=== PATIENT | female | born 1955 | race Two or more races ===

== ENCOUNTER → 2017-10-02 | Outpatient (CLI) | payer MEDICARE, OTHER ==
[2017-10-02 18:44] LABS: ABSOLUTE BASOPHILS # (AUTO) 0.1 10^3/uL (0.0-0.2); ABSOLUTE EOSINOPHILS # (AUTO) 0.2 10^3/uL (0.0-0.6); ABSOLUTE LYMPHOCYTES (AUTO) 1.5 10^3/uL (0.5-4.7); ABSOLUTE NEUT (AUTO) 5.4 10^3/uL (1.7-8.2); BASOPHILS % (AUTO) 0.8 % (0-2); EOSINOPHILS % (AUTO) 2.6 % (0-6); HEMATOCRIT 43.2 % (36.0-47.0); HEMOGLOBIN 15.1 g/dL (12.0-15.5); MEAN CORPUSCULAR HEMOGLOBIN 34.1 pg (27.0-33.4); MEAN CORPUSCULAR VOLUME 97 fl (80-97); MONOCYTES % (AUTO) 12.4 % (3-13); RED BLOOD COUNT 4.44 10^6/uL (3.72-5.28); RED CELL DISTRIBUTION WIDTH 13.7 % (11.5-14.0); SEGMENTED NEUTROPHILS % (AUTO) 66.2 % (42-78); TOTAL CELLS COUNTED % (AUTO) 100 %; WHITE BLOOD COUNT 8.1 10^3/uL (4.0-10.5)
[2017-10-02 18:51] LABS: ALANINE AMINOTRANSFERASE 104 U/L (9-52); ALBUMIN 4.1 g/dL (3.5-5.0); ALKALINE PHOSPHATASE 124 U/L (38-126); ANION GAP 8 (5-19); ASPARTATE AMINO TRANSFERASE 121 U/L (14-36); BILIRUBIN,DIRECT 0.4 mg/dL (0.0-0.4); BILIRUBIN,TOTAL 0.9 mg/dL (0.2-1.3); BLOOD UREA NITROGEN 19 mg/dL (7-20); CALCIUM 9.5 mg/dL (8.4-10.2); CARBON DIOXIDE 33 mmol/L (22-30); CHLORIDE 99 mmol/L (98-107); GLUCOSE 101 mg/dL (75-110); SODIUM 140.2 mmol/L (137-145); TOTAL PROTEIN 7.4 g/dL (6.3-8.2); URIC ACID 4.1 mg/dL (2.5-7.5)
[2017-10-02 19:13] LABS: PLATELET COUNT 72 10^3/uL (150-450)
[2017-10-04 06:39] LABS: HEPATITIS A AB IGM Negative (Negative); HEPATITIS B CORE AB IGM Negative (Negative); HEPATITS B SURFACE ANTIGEN Negative (Negative)
[2017-10-04 11:33] LABS: APPEARANCE,URINE CLEAR; BILIRUBIN,URINE NEGATIVE (NEGATIVE); COLOR,URINE YELLOW; GLUCOSE, URINE NEGATIVE (NEGATIVE); KETONES,URINE NEGATIVE (NEGATIVE); LEUKOCYTE ESTERASE,URINE LARGE (NEGATIVE); NITRITE,URINE NEGATIVE (NEGATIVE); PROTEIN,URINE NEGATIVE (NEGATIVE); URINE SPECIFIC GRAVITY 1.004; UROBILINOGEN,URINE NEGATIVE mg/dL (<2.0)
[2017-10-04 11:36] LABS: CHOLESTEROL 122.53 mg/dL (0-200); TRIGLYCERIDES 102 mg/dL (<150)
[2017-10-04 11:47] LABS: DIRECT LDL 35 mg/dL (<100)
[2017-10-05 07:28] LABS: HEPATITIS C VIRUS ANTIBODY >11.0 s/co ratio (0.0-0.9)
[2017-10-07 15:39] LABS: HEPATITIS C QUANTITATION 132000 IU/mL (.)
[2017-10-08 07:20] LABS: HEPATITIS C LOG10 5.121 (.)
== END ==
LOC: OD 17:38
PROVIDERS: ATTEND Internal Medicine
DX: B18.2 Chronic viral hepatitis C (principal)
CPT/HCPCS: 36415; 80053; 80061; 80074; 81001; 84550; 85025; 87522

== ENCOUNTER 2018-10-28 21:04 | Inpatient (IN) | payer MEDICARE, OTHER ==
--- NOTE | 2018-10-28 23:33 | ER Document Report ---
ED Medical Screen (RME) - General Chief Complaint: Rectal Bleeding Stated Complaint: INTERNAL BLEEDING Time Seen by Provider: 10/28/18 23:26 Primary Care Provider: LIZZIE JARAMILLO MD [Primary Care Provider] - Follow up as needed TRAVEL OUTSIDE OF THE [place] IN LAST 30 DAYS: No - HPI Notes: 10/28/18 23:27 Patient is a 63-year-old female presents to the emergency department with chief complaint of rectal bleeding. Patient states she has a history of systemic scleroderma and similar rectal bleeding in the past. Patient states that last time she had the symptoms was 3 to 4 years ago, at that time she did need a blood transfusion. Patient states yesterday she started to have diarrhea that was black in color. Patient states she had 5 episodes of black stools yesterday and 4 episodes of black stools today. Patient denies bright red bleeding. Patient denies pain with bowel movement. Patient does have a history of hep C, "scarring to her liver," and TIAs. Patient denies use of blood thinners. Patient denies chest pain or shortness of breath. Patient does state having some dizziness with ambulation. Past Medical History Renal/ Medical History: Denies: Hx Peritoneal Dialysis Past Surgical History: Reports: Hx Appendectomy, Hx Hysterectomy Physical Exam - Vital signs Vitals: Temp Pulse Resp BP Pulse Ox 98.6 F 94 16 130/58 H 98 10/28/18 21:18 10/28/18 21:18 10/28/18 21:18 10/28/18 21:18 10/28/18 21:18 - Abdominal Inspection: Normal Distension: No distension Bowel sounds: Normal Tenderness: Nontender Organomegaly: No organomegaly Course - Re-evaluation Re-evalutation: 10/28/18 23:30 I have greeted and performed a rapid initial assessment of this patient. A comprehensive ED assessment and evaluation of the patient, analysis of test results and completion of the medical decision making process will be conducted by additional ED providers. - Vital Signs Vital signs: Temp Pulse Resp BP Pulse Ox 98.6 F 94 16 130/58 H 98 10/28/18 21:18 10/28/18 21:18 10/28/18 21:18 10/28/18 21:18 10/28/18 21:18 Doctor's Discharge - Discharge Referrals: LIZZIE JARAMILLO MD [Primary Care Provider] - Follow up as needed
[2018-10-29 00:25] LABS: ABSOLUTE EOSINOPHILS # (AUTO) 0.1 10^3/uL (0.0-0.6); ABSOLUTE LYMPHOCYTES (AUTO) 1.3 10^3/uL (0.5-4.7); ABSOLUTE MONOCYTES (AUTO) 0.4 10^3/uL (0.1-1.4); ABSOLUTE NEUT (AUTO) 1.8 10^3/uL (1.7-8.2); BASOPHILS % (AUTO) 0.9 % (0-2); EOSINOPHILS % (AUTO) 2.7 % (0-6); HEMATOCRIT 29.2 % (36.0-47.0); HEMOGLOBIN 10.1 g/dL (12.0-15.5); LYMPHOCYTES % (AUTO) 35.9 % (13-45); MEAN CORPUSCULAR HEMOGLOBIN 33.8 pg (27.0-33.4); MEAN CORPUSCULAR HGB CONC 34.4 g/dL (32.0-36.0); MEAN CORPUSCULAR VOLUME 98 fl (80-97); MONOCYTES % (AUTO) 11.6 % (3-13); RED BLOOD COUNT 2.98 10^6/uL (3.72-5.28); RED CELL DISTRIBUTION WIDTH 13.6 % (11.5-14.0); SEGMENTED NEUTROPHILS % (AUTO) 48.9 % (42-78); TOTAL CELLS COUNTED % (AUTO) 100 %; WHITE BLOOD COUNT 3.7 10^3/uL (4.0-10.5)
[2018-10-29 00:32] LABS: APPEARANCE,URINE CLEAR; BILIRUBIN,URINE NEGATIVE (NEGATIVE); COLOR,URINE YELLOW; GLUCOSE, URINE NEGATIVE (NEGATIVE); KETONES,URINE NEGATIVE (NEGATIVE); LEUKOCYTE ESTERASE,URINE LARGE (NEGATIVE); NITRITE,URINE NEGATIVE (NEGATIVE); PROTEIN,URINE NEGATIVE (NEGATIVE); URINE SPECIFIC GRAVITY 1.012; UROBILINOGEN,URINE NEGATIVE mg/dL (<2.0)
[2018-10-29 00:33] LABS: ALANINE AMINOTRANSFERASE 92 U/L (9-52); ALBUMIN 3.2 g/dL (3.5-5.0); ALKALINE PHOSPHATASE 124 U/L (38-126); ANION GAP 6 (5-19); ASPARTATE AMINO TRANSFERASE 137 U/L (14-36); BILIRUBIN,DIRECT 0.3 mg/dL (0.0-0.4); BILIRUBIN,TOTAL 0.3 mg/dL (0.2-1.3); BLOOD UREA NITROGEN 20 mg/dL (7-20); CALCIUM 9.2 mg/dL (8.4-10.2); CARBON DIOXIDE 28 mmol/L (22-30); CHLORIDE 104 mmol/L (98-107); GLUCOSE 76 mg/dL (75-110); POTASSIUM 4.5 mmol/L (3.6-5.0); SODIUM 138.4 mmol/L (137-145); TOTAL PROTEIN 6.4 g/dL (6.3-8.2)
[2018-10-29 00:35] LABS: INTERNATIONAL RATION (INR) 1.13; PROTHROMBIN TIME 15.1 SEC (11.4-15.4)
[2018-10-29 00:36] LABS: PARTIAL THROMBOPLASTIN TIME 32.7 SEC (23.5-35.8)
[2018-10-29 00:44] LABS: PLATELET COUNT 57 10^3/uL (150-450)
--- NOTE | 2018-10-29 01:03 | ER Document Report ---
ED General - General Chief Complaint: Rectal Bleeding Stated Complaint: INTERNAL BLEEDING Time Seen by Provider: 10/28/18 23:26 Notes: Patient is a 63-year-old female with systemic sclerosis that presents to the emergency department for chief complaint of black stools. Patient states over the past 2 days she is been having 4-5 black stools at home, she has a history of GI bleeding in the past, she does have esophageal stricture from her systemic sclerosis, has not been able to have an EGD in a long time. She states she is due blood transfusion in the past she states that typically when she has bleeding, it resolves after medical treatment, and occasionally needs a transfusion, but rarely has needed an intervention. She has had some epigastric discomfort and pain she rates it as a 1 out of 10 at this time, describes it as mild. She denies any changes in her diet, denies being on any blood thinners. She denies taking NSAIDs, or drinking caffeine and excessive doses. She does smoke cigarettes. Past Medical History: Systemic sclerosis, GERD Past Surgical History: Hysterectomy Social History: Admits to smoking cigarettes, denies alcohol or drug use. Family History: Reviewed and noncontributory for presenting illness Allergies: Reviewed, see documented allergy list. REVIEW OF SYSTEMS: Other than noted above, the 12 point review of systems was reviewed with the patient and were negative, all pertinent findings are included in the HPI. PHYSICAL EXAMINATION: Vital signs reviewed, nursing noted reviewed. GENERAL: Well-appearing, well-nourished and in no acute distress. HEAD: Atraumatic, normocephalic. EYES: Eyes appear normal, extraocular movements intact, sclera anicteric, conjunctiva are normal. ENT: nares patent, oropharynx clear without exudates. Moist mucous membranes. NECK: Normal range of motion, supple without lymphadenopathy LUNGS: Breath sounds clear to auscultation bilaterally and equal. No wheezes rales or rhonchi. HEART: Regular rate and rhythm without murmurs ABDOMEN: Soft, mild epigastric tenderness to palpation, normoactive bowel sounds. No rebound, guarding, or rigidity. No masses appreciated. EXTREMITIES: Nontender, good range of motion, no pitting or edema. NEUROLOGICAL: No focal neurological deficits. Moves all extremities spontaneously Motor and sensory grossly intact on exam. PSYCH: Normal mood, normal affect. SKIN: Warm, Dry, normal turgor, no rashes or lesions noted on exposed skin TRAVEL OUTSIDE OF THE [place] IN LAST 30 DAYS: No - Related Data Allergies/Adverse Reactions: barium iodide Allergy (Verified 10/29/18 00:05) barium sulfate Allergy (Verified 10/29/18 00:05) cyclobenzaprine [From Flexeril] Adverse Reaction (Verified 10/29/18 00:05) Past Medical History - Social History Smoking Status: Current Every Day Smoker Family History: Reviewed & Not Pertinent Patient has suicidal ideation: No Patient has homicidal ideation: No Renal/ Medical History: Denies: Hx Peritoneal Dialysis Past Surgical History: Reports: Hx Appendectomy, Hx Hysterectomy Physical Exam - Vital signs Vitals: Temp Pulse Resp BP Pulse Ox 98.6 F 94 16 130/58 H 98 10/28/18 21:18 10/28/18 21:18 10/28/18 21:18 10/28/18 21:18 10/28/18 21:18 Course - Re-evaluation Re-evalutation: Patient seen and examined vital signs reviewed. Laboratory data and imaging were ordered as appropriate for the patient's presenting symptoms and complaint, with consideration of any critical or life threatening conditions that may be associated with their obtained history and exam as noted above. Patient was treated with IV Protonix Results were reviewed when available and demonstrated mild anemia with a hemoglobin of 10.1, patient is hemodynamically stable, her platelet count was lower at 57 as well. The patient was re-evaluated and was stable Evaluation was most consistent with GI hemorrhage, patient's likely having upper GI bleeding, but is hemodynamically stable at this time, no tachycardia, will treat her with Protonix, and monitor, requested admission from her primary care, no transfusion necessary at this time. Results were discussed with the patient at this point after careful consideration I feel that that patient should be admitted to the hospital. This was discussed with the patient that it is in the best interest for their care to be admitted for further evaluation and management. Patient agreed with this plan of care. A call was placed to the admitted physician, Dr. Cronin who graciously accepted the patient onto their service. *Note is created using voice recognition software and may contain spelling, syntax or grammatical errors. Laboratory 10/28/18 10/28/18 10/28/18 23:50 23:50 23:50 WBC 3.7 L RBC 2.98 L Hgb 10.1 L Hct 29.2 L MCV 98 H MCH 33.8 H MCHC 34.4 RDW 13.6 Plt Count 57 L Seg Neutrophils % 48.9 Lymphocytes % 35.9 Monocytes % 11.6 Eosinophils % 2.7 Basophils % 0.9 Absolute Neutrophils 1.8 Absolute Lymphocytes 1.3 Absolute Monocytes 0.4 Absolute Eosinophils 0.1 Absolute Basophils 0.0 PT 15.1 INR 1.13 APTT 32.7 Sodium 138.4 Potassium 4.5 Chloride 104 Carbon Dioxide 28 Anion Gap 6 BUN 20 Creatinine 0.61 Est GFR ( Amer) > 60 Est GFR (Non-Af Amer) > 60 Glucose 76 Calcium 9.2 Total Bilirubin 0.3 Direct Bilirubin 0.3 Neonat Total Bilirubin Not Reportable Neonat Direct Bilirubin Not Reportable Neonat Indirect Bili Not Reportable AST 137 H ALT 92 H Alkaline Phosphatase 124 Total Protein 6.4 Albumin 3.2 L Urine Color Urine Appearance Urine pH Ur Specific [place] Urine Protein Urine Glucose (UA) Urine Ketones Urine Blood Urine Nitrite Urine Bilirubin Urine Urobilinogen Ur Leukocyte Esterase Urine WBC (Auto) Urine RBC (Auto) Urine Ascorbic Acid Blood Type Antibody Screen 10/28/18 10/28/18 23:50 23:50 WBC RBC Hgb Hct MCV MCH MCHC RDW Plt Count Seg Neutrophils % Lymphocytes % Monocytes % Eosinophils % Basophils % Absolute Neutrophils Absolute Lymphocytes Absolute Monocytes Absolute Eosinophils Absolute Basophils PT INR APTT Sodium Potassium Chloride Carbon Dioxide Anion Gap BUN Creatinine Est GFR ( Amer) Est GFR (Non-Af Amer) Glucose Calcium Total Bilirubin Direct Bilirubin Neonat Total Bilirubin Neonat Direct Bilirubin Neonat Indirect Bili AST ALT Alkaline Phosphatase Total Protein Albumin Urine Color YELLOW Urine Appearance CLEAR Urine pH 6.0 Ur Specific [place] 1.012 Urine Protein NEGATIVE Urine Glucose (UA) NEGATIVE Urine Ketones NEGATIVE Urine Blood NEGATIVE Urine Nitrite NEGATIVE Urine Bilirubin NEGATIVE Urine Urobilinogen NEGATIVE Ur Leukocyte Esterase LARGE H Urine WBC (Auto) 28 Urine RBC (Auto) 0 Urine Ascorbic Acid 40 H Blood Type A NEGATIVE Antibody Screen NEGATIVE - Vital Signs Vital signs: Temp Pulse Resp BP Pulse Ox 98.6 F 94 16 110/62 94 10/28/18 21:18 10/28/18 21:18 10/28/18 21:18 10/29/18 02:01 10/29/18 02:01 - Laboratory Result Diagrams: 10/28/18 23:50 10/28/18 23:50 Laboratory results interpreted by me: 10/28/18 10/28/18 10/28/18 23:50 23:50 23:50 WBC 3.7 L RBC 2.98 L Hgb 10.1 L Hct 29.2 L MCV 98 H MCH 33.8 H Plt Count 57 L AST 137 H ALT 92 H Albumin 3.2 L Ur Leukocyte Esterase LARGE H Urine Ascorbic Acid 40 H Discharge - Discharge Clinical Impression: Acute blood loss anemia, Thrombocytopenia GI hemorrhage Qualifiers: GI bleed type/associated pathology: melena Qualified Code(s): K92.1 - Melena Condition: Stable Disposition: ADMITTED INPATIENT Admitting Provider: Deja Unit Admitted: [facility]
[2018-10-29] MEDS ORDERED: PANTOPRAZOLE SODIUM 40 MG VIAL IV ONE (01:19)
[2018-10-29] MEDS ORDERED: DEXTROSE 50%-WATER 25 GM/50 ML DISP.SYRIN IV PRN ×2 (01:42)
[2018-10-29] MEDS ORDERED: GLUCAGON,HUMAN RECOMB 1 MG INJ SUBCUT PRN (01:42)
[2018-10-29] MEDS ORDERED: DEXTROSE 40% GEL 15 GM TUBE PO PRN ×2 (01:42)
[2018-10-29 02:54] LABS: LIPASE 151.1 U/L (23-300)
[2018-10-29 03:20] LABS: INTERNATIONAL RATION (INR) 1.19; PROTHROMBIN TIME 15.7 SEC (11.4-15.4)
[2018-10-29 04:02] LABS: FREE T4 (FREE THYROXINE) 0.93 ng/dL (0.78-2.19)
[2018-10-29 04:16] LABS: THYROID STIMULATING HORMONE 8.23 uIU/mL (0.47-4.68)
[2018-10-29] MEDS: NORMAL SALINE 500 ML with OCTREOTIDE ACETATE 500 MCG IV PRN ×2 (04:57)
[2018-10-29] MEDS ORDERED: (PENDING PHARMACY ID) (Oxycodone Hcl [Oxycontin] 40 MG) PO SCH (08:30)
[2018-10-29] MEDS ORDERED: PANTOPRAZOLE SODIUM 20 MG TABLET.DR PO SCH (09:00)
[2018-10-29] MEDS ORDERED: (PENDING PHARMACY ID) (Nadolol [Corgard] 20 MG) PO SCH (10:00)
[2018-10-29] MEDS ORDERED: TIOTROPIUM BROMIDE DPI 5 CAP/KIT (18 MCG/CAP) IH SCH (10:00)
[2018-10-29] MEDS: TIOTROPIUM BROMIDE DPI 5 CAP/KIT (18 MCG/CAP) IH SCH (10:27)
[2018-10-29] MEDS: NADOLOL 40 MG TABLET PO SCH (10:27)
[2018-10-29] MEDS: PANTOPRAZOLE SODIUM 40 MG VIAL IV SCH ×2 (10:27→22:12)
[2018-10-29] MEDS: LOSARTAN POTASSIUM 50 MG TABLET PO SCH (10:28)
--- NOTE | 2018-10-29 12:27 | PDOC CONSULTATION ---
Consultation Consult Date: 10/29/18 Provider Consulted: ERIN PHILLIPS Consult reason:: Abdominal pains with hemoccult + stool History of Present Illness Admission Date/PCP: 10/29/18 01:39 LIZZIE JARAMILLO MD History of Present Illness: PRUDENCIO GRIFFITHS is a 63 year old female diagnosed with scleroderma in 1981 in [place]. Have had at least 12x of EGD with esophageal dilatation the last one at [facility] 6 years ago. C/o right subcostal severe pains yesterday and went to ED. Stool + for hemoccult. Hgb at 10.1. Pains have subsided this am. Platelet is down to 59K. Long talk with patient. Has been just drinking Ensure for the last 2 years. Refuses to have another EGD because GI at [facility] told her that it is dangerous to have another EGD and dilatation. Joined by her daughter a who tells me that patient sometimes would eat regular food though patient claims she has to chew her food well but has a hard time because no lower dentures due to scleroderma. Past Surgical History Past Surgical History: Reports: Appendectomy, Hysterectomy Social History Smoking Status: Current Every Day Smoker Cigarettes Packs Per Day: 0.2 Number of Years Smokin Frequency of Alcohol Use: None Hx Recreational Drug Use: No Family History Family History: Reviewed & Not Pertinent Parental Family History Reviewed: Yes Children Family History Reviewed: No Sibling(s) Family History Reviewed.: No Medication/Allergy Home Medications: Losartan Potassium [Cozaar 50 mg Tablet] 50 mg PO DAILY 10/29/18 Nadolol [Corgard] 20 mg PO DAILY 10/29/18 Omeprazole 20 mg PO BID 10/29/18 Oxycodone HCl [Oxycontin] 40 mg PO Q8 10/29/18 Tiotropium [place] [Spiriva Handihaler 5 Cap/Kit (18 Mcg/Cap)] 1 puff IH DAILY 10/29/18 Allergies/Adverse Reactions: barium iodide Allergy (Verified 10/29/18 00:05) barium sulfate Allergy (Verified 10/29/18 00:05) cyclobenzaprine [From Flexeril] Adverse Reaction (Verified 10/29/18 00:05) Review of Systems Constitutional: PRESENT: as per HPI, other - no fever/chills Eyes: PRESENT: other - no visual/hearing changes Gastrointestinal: PRESENT: abdominal pain Genitourinary: PRESENT: other - no dysuria Physical Exam Vital Signs: Temp Pulse Resp BP Pulse Ox 98.2 F 82 18 135/53 H 100 10/29/18 07:46 10/29/18 07:46 10/29/18 07:46 10/29/18 07:46 10/29/18 07:46 Intake & Output 10/28/18 10/29/18 10/30/18 06:59 06:59 06:59 Output Total 0 Balance 0 Weight 58.1 kg General appearance: PRESENT: no acute distress Head exam: PRESENT: atraumatic Eye exam: PRESENT: conjunctiva pink Mouth exam: PRESENT: moist Neck exam: PRESENT: full ROM Respiratory exam: PRESENT: clear to auscultation shellie Cardiovascular exam: PRESENT: RRR Pulses: PRESENT: normal radial pulses Vascular exam: PRESENT: normal capillary refill GI/Abdominal exam: PRESENT: soft - non tender Rectal exam: PRESENT: heme (+) stool Extremities exam: PRESENT: full ROM Musculoskeletal exam: PRESENT: ambulatory Neurological exam: PRESENT: alert, oriented to person, oriented to place, oriented to time, oriented to situation Psychiatric exam: PRESENT: appropriate affect Skin exam: PRESENT: normal color, warm Results Laboratory Results: 10/28/18 23:50 10/28/18 23:50 10/28/18 10/28/18 10/28/18 23:50 23:50 23:50 WBC 3.7 L RBC 2.98 L Hgb 10.1 L Hct 29.2 L MCV 98 H MCH 33.8 H MCHC 34.4 RDW 13.6 Plt Count 57 L Seg Neutrophils % 48.9 Lymphocytes % 35.9 Monocytes % 11.6 Eosinophils % 2.7 Basophils % 0.9 Absolute Neutrophils 1.8 Absolute Lymphocytes 1.3 Absolute Monocytes 0.4 Absolute Eosinophils 0.1 Absolute Basophils 0.0 Sodium 138.4 Potassium 4.5 Chloride 104 Carbon Dioxide 28 Anion Gap 6 BUN 20 Creatinine 0.61 Est GFR ( Amer) > 60 Est GFR (Non-Af Amer) > 60 Glucose 76 Calcium 9.2 Total Bilirubin 0.3 AST 137 H ALT 92 H Alkaline Phosphatase 124 Ammonia Total Protein 6.4 Albumin 3.2 L Amylase Lipase TSH Free T4 Urine Color Urine Appearance Urine pH Ur Specific [place] Urine Protein Urine Glucose (UA) Urine Ketones Urine Blood Urine Nitrite Ur Leukocyte Esterase Urine WBC (Auto) Urine RBC (Auto) Blood Type A NEGATIVE Antibody Screen NEGATIVE 10/28/18 10/28/18 10/28/18 23:50 23:50 23:50 WBC RBC Hgb Hct MCV MCH MCHC RDW Plt Count Seg Neutrophils % Lymphocytes % Monocytes % Eosinophils % Basophils % Absolute Neutrophils Absolute Lymphocytes Absolute Monocytes Absolute Eosinophils Absolute Basophils Sodium Potassium Chloride Carbon Dioxide Anion Gap BUN Creatinine Est GFR ( Amer) Est GFR (Non-Af Amer) Glucose Calcium Total Bilirubin AST ALT Alkaline Phosphatase Ammonia Total Protein Albumin Amylase 45 Lipase 151.1 TSH 8.23 H Free T4 0.93 Urine Color YELLOW Urine Appearance CLEAR Urine pH 6.0 Ur Specific [place] 1.012 Urine Protein NEGATIVE Urine Glucose (UA) NEGATIVE Urine Ketones NEGATIVE Urine Blood NEGATIVE Urine Nitrite NEGATIVE Ur Leukocyte Esterase LARGE H Urine WBC (Auto) 28 Urine RBC (Auto) 0 Blood Type Antibody Screen 10/29/18 02:56 WBC RBC Hgb Hct MCV MCH MCHC RDW Plt Count Seg Neutrophils % Lymphocytes % Monocytes % Eosinophils % Basophils % Absolute Neutrophils Absolute Lymphocytes Absolute Monocytes Absolute Eosinophils Absolute Basophils Sodium Potassium Chloride Carbon Dioxide Anion Gap BUN Creatinine Est GFR ( Amer) Est GFR (Non-Af Amer) Glucose Calcium Total Bilirubin AST ALT Alkaline Phosphatase Ammonia 45.8 H Total Protein Albumin Amylase Lipase TSH Free T4 Urine Color Urine Appearance Urine pH Ur Specific [place] Urine Protein Urine Glucose (UA) Urine Ketones Urine Blood Urine Nitrite Ur Leukocyte Esterase Urine WBC (Auto) Urine RBC (Auto) Blood Type Antibody Screen Assessment & Plan - Diagnosis (1) Acute blood loss anemia Is this a current diagnosis for this admission?: Yes (2) GI hemorrhage Qualifiers: GI bleed type/associated pathology: melena Qualified Code(s): K92.1 - Melena Is this a current diagnosis for this admission?: Yes (3) Thrombocytopenia Is this a current diagnosis for this admission?: Yes - Time Time Spent: 30 to 50 Minutes - Inpatient Certification Medical Necessity: Need For IV Fluids, Risk of Complication if Not Cared For in Hospital - Plan Summary Plan Summary: Patient is stable and asymptomatic She adamantly refuses EGD at this time. With low platelets will consult Dr Gil who is her daughter's funding coordinator for Celiac Disease. Will sign off. Maybe have one of our GI to further convince patient for EGD
[2018-10-29] MEDS: OXYCODONE HCL SR 40 MG TABLET PO SCH ×2 (14:10→22:12)
--- NOTE | 2018-10-29 17:54 | PDOC H&P ---
History of Present Illness Admission Date/PCP: 10/29/18 01:39 LIZZIE JARAMILLO MD History of Present Illness: PRUDENCIO GRIFFITHS is a 63 year old female, she has hepatitis C liver cirr hosis complicated with esophageal varices, history of crest syndrome, systemic sclerosis with esophageal dysmotility and obstruction, she came to the emergency room for evaluation of passage of melanotic stool. She denies any abdominal pain. She was supposed to be treated with Epclusa for hepatitis C but she did not finish the 3-month duration for the treatment because she said the medication caused severe dyspepsia syndrome,. The insurance company will not pay for an alternative therapy so essentially she is not received any treatment for hepatitis C. The hemoglobin is 10, there is no indication for blood transfusion, she has thrombocytopenia from liver cirrhosis for many years Past Medical History Musculoskeltal Medical History: Reports: Other - Systemic sclerosis, crest syndrome, scleroderma Past Surgical History Past Surgical History: Reports: Appendectomy, Hysterectomy Social History Smoking Status: Current Every Day Smoker Cigarettes Packs Per Day: 0.2 Number of Years Smokin Frequency of Alcohol Use: None Hx Recreational Drug Use: No Family History Family History: Reviewed & Not Pertinent Parental Family History Reviewed: Yes Children Family History Reviewed: Yes Sibling(s) Family History Reviewed.: Yes Medication/Allergy Home Medications: Losartan Potassium [Cozaar 50 mg Tablet] 50 mg PO DAILY 10/29/18 Nadolol [Corgard] 20 mg PO DAILY 10/29/18 Omeprazole 20 mg PO BID 10/29/18 Oxycodone HCl [Oxycontin] 40 mg PO Q8 10/29/18 Tiotropium [place] [Spiriva Handihaler 5 Cap/Kit (18 Mcg/Cap)] 1 puff IH DAILY 10/29/18 Allergies/Adverse Reactions: barium iodide Allergy (Verified 10/29/18 00:05) barium sulfate Allergy (Verified 10/29/18 00:05) cyclobenzaprine [From Flexeril] Adverse Reaction (Verified 10/29/18 00:05) Review of Systems Constitutional: ABSENT: chills, fever(s), headache(s), weight gain, weight loss Eyes: ABSENT: visual disturbances Ears: ABSENT: hearing changes Cardiovascular: ABSENT: chest pain, dyspnea on exertion, edema, orthropnea, palpitations Respiratory: ABSENT: cough, hemoptysis Gastrointestinal: PRESENT: melena Genitourinary: ABSENT: dysuria, hematuria Musculoskeletal: PRESENT: back pain. ABSENT: joint swelling Integumentary: ABSENT: rash, wounds Neurological: ABSENT: abnormal gait, abnormal speech, confusion, dizziness, focal weakness, syncope Psychiatric: ABSENT: anxiety, depression, homidical ideation, suicidal ideation Endocrine: ABSENT: cold intolerance, heat intolerance, menstrual abnormalities, polydipsia, polyuria Hematologic/Lymphatic: ABSENT: easy bleeding, easy bruising, lymphadenopathy Physical Exam Vital Signs: Temp Pulse Resp BP Pulse Ox 98.0 F 72 18 114/60 94 10/29/18 11:31 10/29/18 11:31 10/29/18 11:31 10/29/18 11:31 10/29/18 11:31 Intake & Output 10/28/18 10/29/18 10/30/18 06:59 06:59 06:59 Intake Total 360 Output Total 0 Balance 0 360 Weight 58.1 kg General appearance: PRESENT: no acute distress Head exam: PRESENT: atraumatic, normocephalic Eye exam: PRESENT: PERRLA Ear exam: PRESENT: normal external ear exam Mouth exam: PRESENT: moist, tongue midline Neck exam: PRESENT: full ROM Respiratory exam: PRESENT: clear to auscultation shellie Cardiovascular exam: PRESENT: RRR, +S1, +S2 Vascular exam: PRESENT: normal capillary refill GI/Abdominal exam: PRESENT: normal bowel sounds, soft Rectal exam: PRESENT: deferred Neurological exam: PRESENT: alert, CN II-XII grossly intact Psychiatric exam: PRESENT: appropriate affect, normal mood Skin exam: PRESENT: dry, intact, warm Results Laboratory Results: 10/28/18 23:50 10/28/18 23:50 10/28/18 10/28/18 10/28/18 23:50 23:50 23:50 WBC 3.7 L RBC 2.98 L Hgb 10.1 L Hct 29.2 L MCV 98 H MCH 33.8 H MCHC 34.4 RDW 13.6 Plt Count 57 L Seg Neutrophils % 48.9 Lymphocytes % 35.9 Monocytes % 11.6 Eosinophils % 2.7 Basophils % 0.9 Absolute Neutrophils 1.8 Absolute Lymphocytes 1.3 Absolute Monocytes 0.4 Absolute Eosinophils 0.1 Absolute Basophils 0.0 Sodium 138.4 Potassium 4.5 Chloride 104 Carbon Dioxide 28 Anion Gap 6 BUN 20 Creatinine 0.61 Est GFR ( Amer) > 60 Est GFR (Non-Af Amer) > 60 Glucose 76 Calcium 9.2 Total Bilirubin 0.3 AST 137 H ALT 92 H Alkaline Phosphatase 124 Ammonia Total Protein 6.4 Albumin 3.2 L Amylase Lipase TSH Free T4 Urine Color Urine Appearance Urine pH Ur Specific [place] Urine Protein Urine Glucose (UA) Urine Ketones Urine Blood Urine Nitrite Ur Leukocyte Esterase Urine WBC (Auto) Urine RBC (Auto) Blood Type A NEGATIVE Antibody Screen NEGATIVE 10/28/18 10/28/18 10/28/18 23:50 23:50 23:50 WBC RBC Hgb Hct MCV MCH MCHC RDW Plt Count Seg Neutrophils % Lymphocytes % Monocytes % Eosinophils % Basophils % Absolute Neutrophils Absolute Lymphocytes Absolute Monocytes Absolute Eosinophils Absolute Basophils Sodium Potassium Chloride Carbon Dioxide Anion Gap BUN Creatinine Est GFR ( Amer) Est GFR (Non-Af Amer) Glucose Calcium Total Bilirubin AST ALT Alkaline Phosphatase Ammonia Total Protein Albumin Amylase 45 Lipase 151.1 TSH 8.23 H Free T4 0.93 Urine Color YELLOW Urine Appearance CLEAR Urine pH 6.0 Ur Specific [place] 1.012 Urine Protein NEGATIVE Urine Glucose (UA) NEGATIVE Urine Ketones NEGATIVE Urine Blood NEGATIVE Urine Nitrite NEGATIVE Ur Leukocyte Esterase LARGE H Urine WBC (Auto) 28 Urine RBC (Auto) 0 Blood Type Antibody Screen 10/29/18 02:56 WBC RBC Hgb Hct MCV MCH MCHC RDW Plt Count Seg Neutrophils % Lymphocytes % Monocytes % Eosinophils % Basophils % Absolute Neutrophils Absolute Lymphocytes Absolute Monocytes Absolute Eosinophils Absolute Basophils Sodium Potassium Chloride Carbon Dioxide Anion Gap BUN Creatinine Est GFR ( Amer) Est GFR (Non-Af Amer) Glucose Calcium Total Bilirubin AST ALT Alkaline Phosphatase Ammonia 45.8 H Total Protein Albumin Amylase Lipase TSH Free T4 Urine Color Urine Appearance Urine pH Ur Specific [place] Urine Protein Urine Glucose (UA) Urine Ketones Urine Blood Urine Nitrite Ur Leukocyte Esterase Urine WBC (Auto) Urine RBC (Auto) Blood Type Antibody Screen Assessment & Plan - Diagnosis (1) Upper GI bleed Is this a current diagnosis for this admission?: Yes Plan: She is most likely bleeding from esophageal varices, start somatostatin infu ellie, she will need upper endoscopy,It is recommended that EGD be done within 24 hours of upper GI bleed but patient refused when she was offered the procedure this morning, after talking again to the patient this afternoon she is now open to the procedure (2) Hepatic 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 Is this a current diagnosis for this admission?: Yes (3) Esophageal varices Qualifiers: Esophageal varices type: secondary Esophageal varices bleeding: with bleeding Qualified Code(s): I85.11 - Secondary esophageal varices with bleeding Is this a current diagnosis for this admission?: Yes (4) Esophageal varices in cirrhosis Is this a current diagnosis for this admission?: Yes (5) CREST (calcinosis, Raynaud's phenomenon, esophageal dysfunction, sclerodac tyly, telangiectasia) Is this a current diagnosis for this admission?: Yes (6) Systemic sclerosis Is this a current diagnosis for this admission?: Yes
[2018-10-30] MEDS: NORMAL SALINE 500 ML with OCTREOTIDE ACETATE 500 MCG IV PRN ×4 (00:21→21:58)
[2018-10-30] MEDS: OXYCODONE HCL SR 40 MG TABLET PO SCH ×2 (05:12→15:25)
[2018-10-30 05:32] LABS: ABSOLUTE EOSINOPHILS # (AUTO) 0.1 10^3/uL (0.0-0.6); ABSOLUTE LYMPHOCYTES (AUTO) 1.1 10^3/uL (0.5-4.7); ABSOLUTE MONOCYTES (AUTO) 0.3 10^3/uL (0.1-1.4); ABSOLUTE NEUT (AUTO) 1.3 10^3/uL (1.7-8.2); BASOPHILS % (AUTO) 0.5 % (0-2); EOSINOPHILS % (AUTO) 3.6 % (0-6); HEMATOCRIT 25.2 % (36.0-47.0); HEMOGLOBIN 8.8 g/dL (12.0-15.5); LYMPHOCYTES % (AUTO) 39.4 % (13-45); MEAN CORPUSCULAR HEMOGLOBIN 33.9 pg (27.0-33.4); MEAN CORPUSCULAR HGB CONC 34.7 g/dL (32.0-36.0); MEAN CORPUSCULAR VOLUME 98 fl (80-97); MONOCYTES % (AUTO) 11.9 % (3-13); RED BLOOD COUNT 2.58 10^6/uL (3.72-5.28); RED CELL DISTRIBUTION WIDTH 13.6 % (11.5-14.0); SEGMENTED NEUTROPHILS % (AUTO) 44.6 % (42-78); TOTAL CELLS COUNTED % (AUTO) 100 %; WHITE BLOOD COUNT 2.9 10^3/uL (4.0-10.5)
[2018-10-30 05:58] LABS: ALANINE AMINOTRANSFERASE 115 U/L (9-52); ALBUMIN 2.5 g/dL (3.5-5.0); ALKALINE PHOSPHATASE 95 U/L (38-126); ANION GAP 6 (5-19); ASPARTATE AMINO TRANSFERASE 188 U/L (14-36); BILIRUBIN,DIRECT 0.2 mg/dL (0.0-0.4); BILIRUBIN,TOTAL 0.8 mg/dL (0.2-1.3); BLOOD UREA NITROGEN 19 mg/dL (7-20); CALCIUM 8.2 mg/dL (8.4-10.2); CARBON DIOXIDE 23 mmol/L (22-30); CHLORIDE 109 mmol/L (98-107); GLUCOSE 90 mg/dL (75-110); POTASSIUM 4.5 mmol/L (3.6-5.0); SODIUM 138.4 mmol/L (137-145); TOTAL PROTEIN 5.5 g/dL (6.3-8.2)
[2018-10-30 06:00] LABS: PLATELET COUNT 50 10^3/uL (150-450)
[2018-10-30] MEDS ORDERED: OXYCODONE HCL SR 40 MG TABLET PO ONE (10:00)
[2018-10-30] MEDS: NADOLOL 40 MG TABLET PO SCH (10:28)
[2018-10-30] MEDS: TIOTROPIUM BROMIDE DPI 5 CAP/KIT (18 MCG/CAP) IH SCH (10:34)
[2018-10-30] MEDS: LOSARTAN POTASSIUM 50 MG TABLET PO SCH (10:34)
[2018-10-30] MEDS: PANTOPRAZOLE SODIUM 40 MG VIAL IV SCH ×2 (10:35→22:37)
[2018-10-30] MEDS: DEXTROSE 5%-NORMAL SALINE 1,000 ML IV PRN ×2 (14:30→22:57)
[2018-10-30] MEDS ORDERED: FENTANYL CITRATE INJ/PF 100 MCG/2 ML AMPUL ONE (17:23)
[2018-10-30] MEDS ORDERED: ONDANSETRON HCL INJ/PF 4 MG/2 ML SDV ONE (17:23)
[2018-10-30] MEDS ORDERED: DIPHENHYDRAMINE HCL 50 MG/ML VIAL ONE (17:23)
[2018-10-30] MEDS ORDERED: GLUCAGON,HUMAN RECOMB 1 MG INJ ONE (17:24)
[2018-10-30] MEDS ORDERED: EPINEPHRINE INJ 1 MG/10 ML DISP.SYRIN ONE (17:24)
[2018-10-30] MEDS ORDERED: NALOXONE HCL INJ/PF 0.4 MG/1 ML SDV ONE (17:24)
[2018-10-30] MEDS ORDERED: FLUMAZENIL INJ 0.5 MG/5 ML VIAL ONE (17:24)
[2018-10-30] MEDS ORDERED: OXYCODONE HCL SR 40 MG TABLET PO SCH (18:00)
--- NOTE | 2018-10-30 18:04 | PDOC PROGRESS REPORT ---
Subjective Progress Note for:: 10/30/18 Subjective:: Patient had upper endoscopy today Reason For Visit: UPPER GI BLEED, H/O HEP C LIVER CIRRHOSIS WITH Physical Exam Vital Signs: Temp Pulse Resp BP Pulse Ox 98.7 F 59 L 16 159/77 H 92 10/30/18 16:09 10/30/18 17:55 10/30/18 17:55 10/30/18 17:55 10/30/18 17:55 Intake & Output 10/29/18 10/30/18 10/31/18 06:59 06:59 06:59 Intake Total 360 Output Total 0 Balance 0 360 Weight 58.1 kg 60 kg Results Laboratory Results: 10/30/18 05:18 10/30/18 05:18 10/30/18 10/30/18 05:18 05:18 WBC 2.9 L RBC 2.58 L Hgb 8.8 L Hct 25.2 L MCV 98 H MCH 33.9 H MCHC 34.7 RDW 13.6 Plt Count 50 L Seg Neutrophils % 44.6 Lymphocytes % 39.4 Monocytes % 11.9 Eosinophils % 3.6 Basophils % 0.5 Absolute Neutrophils 1.3 L Absolute Lymphocytes 1.1 Absolute Monocytes 0.3 Absolute Eosinophils 0.1 Absolute Basophils 0.0 Sodium 138.4 Potassium 4.5 Chloride 109 H Carbon Dioxide 23 Anion Gap 6 BUN 19 Creatinine 0.70 Est GFR ( Amer) > 60 Est GFR (Non-Af Amer) > 60 Glucose 90 Calcium 8.2 L Total Bilirubin 0.8 AST 188 H ALT 115 H Alkaline Phosphatase 95 Total Protein 5.5 L Albumin 2.5 L Assessment & Plan - Diagnosis (1) Upper GI bleed Is this a current diagnosis for this admission?: Yes (2) Hepatic 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 Is this a current diagnosis for this admission?: Yes (3) Esophageal varices Qualifiers: Esophageal varices type: secondary Esophageal varices bleeding: with bleeding Qualified Code(s): I85.11 - Secondary esophageal varices with bleeding Is this a current diagnosis for this admission?: Yes (4) Esophageal varices in cirrhosis Is this a current diagnosis for this admission?: Yes (5) CREST (calcinosis, Raynaud's phenomenon, esophageal dysfunction, sclerodactyly, telangiectasia) Is this a current diagnosis for this admission?: Yes (6) Systemic sclerosis Is this a current diagnosis for this admission?: Yes
[2018-10-30] MEDS: MIDAZOLAM 2 MG/2 ML INJ ONE ×2 (18:08→18:14)
--- NOTE | 2018-10-30 18:42 | PDOC CONSULTATION ---
Consultation Consult Date: 10/30/18 Provider Consulted: MORE MCCLELLAND History of Present Illness Admission Date/PCP: 10/29/18 01:39 LIZZIE JARAMILLO MD History of Present Illness: PRUDENCIO GRIFFITHS is a 63 year old female Patient who was admitted last night with melena. She had a few episodes of large amount of black stools at home. She has had 2 previous episodes of GI bleeding but the last episode was in 2004 when she was treated at [facility]. She is not very sure but may have been told of varices. She denies any nausea or vomiting or abdominal pain. On admission her hemoglobin was 10 but this morning her hemoglobin was 8.8. She has a history of hepatitis C and cirrhosis that has never been treated. She had declined treatment in the past. And her hepatitis C was partially treated a while back. She also has crest syndrome and systemic sclerosis Past Medical History Neurological Medical History: Denies: Seizures Musculoskeltal Medical History: Reports: Other - Systemic sclerosis, crest syndrome, scleroderma Past Surgical History Past Surgical History: Reports: Appendectomy, Hysterectomy Social History Smoking Status: Current Every Day Smoker Cigarettes Packs Per Day: 0.2 Number of Years Smokin Frequency of Alcohol Use: None Hx Recreational Drug Use: No - Advance Directive Resuscitation Status: Full Code Family History Family History: Reviewed & Not Pertinent Parental Family History Reviewed: No Children Family History Reviewed: NA Sibling(s) Family History Reviewed.: NA Medication/Allergy Home Medications: Losartan Potassium [Cozaar 50 mg Tablet] 50 mg PO DAILY 10/29/18 Nadolol [Corgard] 20 mg PO DAILY 10/29/18 Omeprazole 20 mg PO BID 10/29/18 Oxycodone HCl [Oxycontin] 40 mg PO Q8 10/29/18 Tiotropium [place] [Spiriva Handihaler 5 Cap/Kit (18 Mcg/Cap)] 1 puff IH DAILY 10/29/18 Allergies/Adverse Reactions: barium iodide Allergy (Verified 10/29/18 00:05) barium sulfate Allergy (Verified 10/29/18 00:05) cyclobenzaprine [From Flexeril] Adverse Reaction (Verified 10/29/18 00:05) Review of Systems All systems: reviewed and no additional remarkable complaints except as stated Physical Exam Vital Signs: Temp Pulse Resp BP Pulse Ox 98.7 F 69 18 168/71 H 94 10/30/18 16:09 10/30/18 18:20 10/30/18 18:20 10/30/18 18:20 10/30/18 18:20 Intake & Output 10/29/18 10/30/18 10/31/18 06:59 06:59 06:59 Intake Total 360 Output Total 0 Balance 0 360 Weight 58.1 kg 60 kg Exam: General: Patient is alert and looks well. HEENT: She is pale but nonjaundiced PERRLA. Oropharynx normal Respiratory: No chest deformity. No respiratory distress. Chest wall palpitation was unremarkable. Breath sounds were normal Cardiovascular: Heart sounds 1 and 2 normal with no murmurs. Abdominal: Not distended. Soft and nontender. Liver and spleen not palpable. No ascites demonstrated. Bowel sounds active. Rectal examination was deferred. Extremities: No edema Neurological: Alert and oriented x4. Grossly nonfocal. Normal speech Skin: No significant rash Psychological: Normal affect Results Laboratory Results: 10/30/18 05:18 10/30/18 05:18 10/30/18 10/30/18 05:18 05:18 WBC 2.9 L RBC 2.58 L Hgb 8.8 L Hct 25.2 L MCV 98 H MCH 33.9 H MCHC 34.7 RDW 13.6 Plt Count 50 L Seg Neutrophils % 44.6 Lymphocytes % 39.4 Monocytes % 11.9 Eosinophils % 3.6 Basophils % 0.5 Absolute Neutrophils 1.3 L Absolute Lymphocytes 1.1 Absolute Monocytes 0.3 Absolute Eosinophils 0.1 Absolute Basophils 0.0 Sodium 138.4 Potassium 4.5 Chloride 109 H Carbon Dioxide 23 Anion Gap 6 BUN 19 Creatinine 0.70 Est GFR ( Amer) > 60 Est GFR (Non-Af Amer) > 60 Glucose 90 Calcium 8.2 L Total Bilirubin 0.8 AST 188 H ALT 115 H Alkaline Phosphatase 95 Total Protein 5.5 L Albumin 2.5 L Assessment & Plan - Diagnosis (1) GI hemorrhage Qualifiers: GI bleed type/associated pathology: melena Qualified Code(s): K92.1 - Melena Is this a current diagnosis for this admission?: Yes Plan: She has had multiple episodes of melena most likely from an upper GI bleeding source even though she has not vomited. The need for an urgent EGD with bleeding control was explained to the patient and she is in agreement. She will likely need transfusion with a drop in her hemoglobin. She is on octreotide at 25 mcg and this will be increased to 50 mcg an hour (2) CREST (calcinosis, Raynaud's phenomenon, esophageal dysfunction, sclerodactyly, telangiectasia) Is this a current diagnosis for this admission?: Yes (3) Hepatic 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 Is this a current diagnosis for this admission?: Yes (4) Systemic sclerosis Is this a current diagnosis for this admission?: Yes (5) Thrombocytopenia Is this a current diagnosis for this admission?: Yes
--- NOTE | 2018-10-30 18:46 | Operative Report ---
Operative Report DATE OF SURGERY: 10/30/18 Operative Report: Pre-op diagnosis: History of cirrhosis and GI bleed Post-op diagnosis: 1. 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 No esophageal varices 3. Upper esophageal sphincter stenosis Surgery: Esophagogastroduodenoscopy Medications: Versed 4mg Fentanyl 100mcg IV push Tissue removed: None Procedure: After informed consent obtained from patient, the throat was sprayed with Hurricane and conscious sedation was achieved. The upper endoscope was inserted into the esophagus under direct vision and advanced into the stomach. The duodenum was entered and examined to the second part. Endoscope was then slowly pulled out of the patient as the mucosa was examined into details. Patient tolerated procedure well. Findings Esophagus: It was slightly difficult to intubate the upper esophageal sphincter due to some narrowing and scarring. No significant varices noted in the distal esophagus. There was a ring with mild stenosis. Antrum: Normal Body: Large amount of fresh blood was noted in the gastric body but I was able to suction this out. There was no underlying lesion in the gastric body. Fundus: There are multiple varices involving the gastric fundus and the gastric cardia. The varices were large in the gastric cardia and there was some fresh blood around the varices but no active oozing of blood was noted. Duodenum first part: Normal Duodenum second part: Normal Plan: Continue octreotide but increased to 50 mcg an hour. Suggest transfer to a tertiary center for radiologic intervention OPERATION: .
--- NOTE | 2018-10-30 21:24 | PDOC TRANSFER SUMMARY ---
General Admission Date/PCP: 10/29/18 01:39 LIZZIE JARAMILLO MD Transfer Date: 10/30/18 Accepting Facility: [facility] Resuscitation Status: Full Code - Transfer Diagnosis (1) Upper GI bleed Is this a current diagnosis for this admission?: Yes (2) Hepatic 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 Is this a current diagnosis for this admission?: Yes (3) Esophageal varices in cirrhosis Is this a current diagnosis for this admission?: Yes (4) CREST (calcinosis, Raynaud's phenomenon, esophageal dysfunction, sclerodactyly, telangiectasia) Is this a current diagnosis for this admission?: Yes (5) Systemic sclerosis Is this a current diagnosis for this admission?: Yes (6) Bleeding gastric varices Is this a current diagnosis for this admission?: Yes - Transfer Medications Home Medications: Losartan Potassium [Cozaar 50 mg Tablet] 50 mg PO DAILY 10/29/18 Nadolol [Corgard] 20 mg PO DAILY 10/29/18 Omeprazole 20 mg PO BID 10/29/18 Oxycodone HCl [Oxycontin] 40 mg PO Q8 10/29/18 Tiotropium [place] [Spiriva Handihaler 5 Cap/Kit (18 Mcg/Cap)] 1 puff IH DAILY 10/29/18 Transfer Medications: Current Medications Dextrose (Dextrose Inj 50% Syringe (25 Gm/50 Ml)) 12.5 gm IV PRN PRN; Protocol PRN Reason: FOR BG 50-69 IN ALERT PATIENT Stop: 11/28/18 01:41 Dextrose (Dextrose Inj 50% Syringe (25 Gm/50 Ml)) 25 gm IV PRN PRN; Protocol PRN Reason: See Label Comments Stop: 11/28/18 01:41 Glucagon (Glucagen Inj 1 Mg Vial) 1 mg SUBCUT PRN PRN; Protocol PRN Reason: Evaluate for BG < 70 Stop: 11/28/18 01:41 Glucose (Glutose 40% Gel 15 Gm Tube) 15 gm PO PRN PRN; Protocol PRN Reason: For BG 50-69 in Alert Patient Stop: 11/28/18 01:41 Glucose (Glutose 40% Gel 15 Gm Tube) 30 gm PO PRN PRN; Protocol PRN Reason: FOR BG < 50 IN ALERT PATIENT Stop: 11/28/18 01:41 Octreotide Acetate 500 mcg/ (Sodium Chloride) 500 mls @ 0 mls/hr IV CONTINUOUS PRN PRN Reason: THIS MED IS NOT "PRN" Stop: 11/28/18 01:55 Last Admin: 10/30/18 00:21 Dose: 25 mcg/hr, 25 mls/hr Documented by: Dextrose/Sodium Chloride (D5ns 1000 Ml Iv Soln) 1,000 mls @ 100 mls/hr IV CONTINUOUS PRN PRN Reason: THIS MED IS NOT "PRN" Stop: 11/29/18 14:20 Last Admin: 10/30/18 14:30 Dose: 100 mls/hr Documented by: Ceftriaxone Sodium 1,500 mg/ (Dextrose) 100 mls @ 200 mls/hr IV DAILY ELIJAH Stop: 11/06/18 21:29 Losartan Potassium (Cozaar 50 Mg Tablet) 50 mg PO DAILY ELIJAH Stop: 11/28/18 09:59 Last Admin: 10/30/18 10:34 Dose: 50 mg Documented by: Nadolol (Corgard 40 Mg Tablet) 20 mg PO DAILY ELIJAH Stop: 11/28/18 09:59 Last Admin: 10/30/18 10:28 Dose: 20 mg Documented by: Oxycodone HCl (Oxycontin Sr 40 Mg Tablet) 40 mg PO Q8A ELIJAH Stop: 11/05/18 13:59 Last Admin: 10/30/18 17:12 Dose: 40 mg Documented by: Pantoprazole Sodium (Protonix Iv Inj 40 Mg Vial) 40 mg IV Q12 ELIJAH Stop: 11/01/18 09:59 Last Admin: 10/30/18 10:35 Dose: 40 mg Documented by: Tiotropium [place] (Spiriva Handihaler 5 Cap/Kit (18 Mcg/Cap)) 1 cap IH DAILY ELIJAH Stop: 11/28/18 09:59 Last Admin: 10/30/18 10:34 Dose: 1 cap Documented by: - Allergies Allergies/Adverse Reactions: barium iodide Allergy (Verified 10/29/18 00:05) barium sulfate Allergy (Verified 10/29/18 00:05) cyclobenzaprine [From Flexeril] Adverse Reaction (Verified 10/29/18 00:05) Hospital Course Hospital Course: Patient presented with passage of melanotic stool, the hemoglobin was 10 on presentation she has a history of hepatitis C liver cirrhosis, crest syndrome with scleroderma. Esophageal varices bleeding was suspected, she was started on intravenous somatostatin on admission as well as intravenous Protonix, patient already now Protonix, she was seen in consultation by GI, she underwent EGD today, she was found to have multiple large gastric varices with fresh blood in the stomach, there was no esophageal varices. Patient has been transferred to tertiary care for radiologic intervention Physical Exam Vital Signs: Temp Pulse Resp BP Pulse Ox 98.7 F 62 20 146/60 H 94 10/30/18 16:09 10/30/18 18:50 10/30/18 18:50 10/30/18 18:50 10/30/18 18:50 Intake & Output 10/29/18 10/30/18 10/31/18 06:59 06:59 06:59 Intake Total 360 Output Total 0 Balance 0 360 Weight 58.1 kg 60 kg General appearance: PRESENT: no acute distress Eye exam: PRESENT: PERRLA Respiratory exam: PRESENT: clear to auscultation shellie Cardiovascular exam: PRESENT: +S1, +S2 GI/Abdominal exam: PRESENT: soft Neurological exam: PRESENT: alert Results Laboratory Results: 10/30/18 05:18 10/30/18 05:18 10/30/18 10/30/18 05:18 05:18 WBC 2.9 L RBC 2.58 L Hgb 8.8 L Hct 25.2 L MCV 98 H MCH 33.9 H MCHC 34.7 RDW 13.6 Plt Count 50 L Seg Neutrophils % 44.6 Lymphocytes % 39.4 Monocytes % 11.9 Eosinophils % 3.6 Basophils % 0.5 Absolute Neutrophils 1.3 L Absolute Lymphocytes 1.1 Absolute Monocytes 0.3 Absolute Eosinophils 0.1 Absolute Basophils 0.0 Sodium 138.4 Potassium 4.5 Chloride 109 H Carbon Dioxide 23 Anion Gap 6 BUN 19 Creatinine 0.70 Est GFR ( Amer) > 60 Est GFR (Non-Af Amer) > 60 Glucose 90 Calcium 8.2 L Total Bilirubin 0.8 AST 188 H ALT 115 H Alkaline Phosphatase 95 Total Protein 5.5 L Albumin 2.5 L
[2018-10-30] MEDS: CEFTRIAXONE SODIUM 1,500 MG in DEXTROSE 5%-WATER 100 ML IV SCH (22:36)
[2018-10-31 04:39] LABS: ABSOLUTE EOSINOPHILS # (AUTO) 0.1 10^3/uL (0.0-0.6); ABSOLUTE LYMPHOCYTES (AUTO) 1.1 10^3/uL (0.5-4.7); ABSOLUTE MONOCYTES (AUTO) 0.4 10^3/uL (0.1-1.4); ABSOLUTE NEUT (AUTO) 1.4 10^3/uL (1.7-8.2); EOSINOPHILS % (AUTO) 3.4 % (0-6); HEMATOCRIT 24.9 % (36.0-47.0); HEMOGLOBIN 8.6 g/dL (12.0-15.5); LYMPHOCYTES % (AUTO) 36.4 % (13-45); MEAN CORPUSCULAR HEMOGLOBIN 34.1 pg (27.0-33.4); MEAN CORPUSCULAR HGB CONC 34.4 g/dL (32.0-36.0); MEAN CORPUSCULAR VOLUME 99 fl (80-97); RED BLOOD COUNT 2.51 10^6/uL (3.72-5.28); RED CELL DISTRIBUTION WIDTH 13.6 % (11.5-14.0); SEGMENTED NEUTROPHILS % (AUTO) 46.2 % (42-78); TOTAL CELLS COUNTED % (AUTO) 100 %; WHITE BLOOD COUNT 2.9 10^3/uL (4.0-10.5)
[2018-10-31 05:04] LABS: PLATELET COUNT 52 10^3/uL (150-450)
[2018-10-31] MEDS: OXYCODONE HCL SR 40 MG TABLET PO SCH ×3 (05:54→21:15)
[2018-10-31] MEDS: LOSARTAN POTASSIUM 50 MG TABLET PO SCH (10:22)
[2018-10-31] MEDS: PANTOPRAZOLE SODIUM 40 MG VIAL IV SCH ×2 (10:22→21:15)
[2018-10-31] MEDS: DEXTROSE 5%-NORMAL SALINE 1,000 ML IV PRN ×2 (10:22→21:16)
[2018-10-31] MEDS: NADOLOL 40 MG TABLET PO SCH (10:24)
[2018-10-31] MEDS: TIOTROPIUM BROMIDE DPI 5 CAP/KIT (18 MCG/CAP) IH SCH (10:24)
[2018-10-31] MEDS: NORMAL SALINE 500 ML with OCTREOTIDE ACETATE 500 MCG IV PRN ×2 (18:12)
[2018-10-31] MEDS: CEFTRIAXONE SODIUM 1,500 MG in DEXTROSE 5%-WATER 100 ML IV SCH (21:15)
[2018-11-01 00:06] VITALS: BP 158/57
== END 2018-11-01 02:52 | disposition short-term general hospital (02) | DRG 300 ==
LOC: ER 21:04 → EH 10-29 01:39 → 3S 10-29 03:20
PROVIDERS: ADMIT Internal Medicine; ATTEND Internal Medicine
PROC: 0DJ08ZZ Inspection of Upper Intestinal Tract, Via Natural or Artificial Opening Endoscopic (ICD-10-PCS; principal; 2018-10-30 17:30)
DX: I86.4 Gastric varices (principal); K92.1 Melena; D62 Acute posthemorrhagic anemia; M34.1 CR(E)ST syndrome; D69.6 Thrombocytopenia, unspecified; K22.2 Esophageal obstruction; K74.69 Other cirrhosis of liver; B18.2 Chronic viral hepatitis C; Z88.8 Allergy status to other drugs, medicaments and biological substances; Z91.041 Radiographic dye allergy status; F17.210 Nicotine dependence, cigarettes, uncomplicated; K21.9 Gastro-esophageal reflux disease without esophagitis
CPT/HCPCS: 36415; 43235; 80053; 81001; 82140; 82150; 83036; 83690; 84439; 84443; 85025; 85610; 85730; 86850; 86900; 86901; 96374; 99284; J0171; J0696; J1200; J1610; J2250; J2310; J2354; J2405; J3010; J3490; J7040; J7042; J7060; S0164

== ENCOUNTER 2018-11-16 19:21 | Emergency (ER) | payer MEDICARE, OTHER ==
--- NOTE | 2018-11-16 22:10 | RADIOLOGY REPORT (SQ) ---
XR ABDOMEN SUPINE AND ERECT WITH CHEST (ABD ACUTE SERIES) HISTORY: Postoperative abdominal pain. COMPARISON: None. FINDINGS: There is a nonobstructive bowel gas pattern. No intraperitoneal free air or air-fluid levels are visualized on the upright view. No abnormal soft tissue calcifications are seen. The lungs are clear. There are no acute bony findings. Multiple surgical coils are seen in the upper abdomen. IMPRESSION: Normal bowel gas pattern.
[2018-11-16] MEDS ORDERED: MORPHINE SULFATE IR 15 MG TABLET PO ONE (22:46)
--- NOTE | 2018-11-16 22:47 | ER Document Report ---
Addendum entered and electronically signed by CHADD MCGEE PA 11/16/18 22:47: Course - Re-evaluation Re-evalutation: Note: Acute abdominal series had been performed on protocol orders before I saw the patient Original Note: ED Medical Screen (RME) - General Chief Complaint: Post Surgical Bleeding Stated Complaint: POST SURGICAL PAIN Time Seen by Provider: 11/16/18 22:38 Primary Care Provider: LIZZIE JARAMILLO MD [Primary Care Provider] - Follow up as needed Notes: 63-year-old female with chief complaint of postoperative pain. On 11/06/2018 she had a obliteration and embolization at the portal vein area at [facility] with a coil placed. This was performed by Dr. Agosto. Patient states pain has developed over the past few days and is worsened today. Denies vomiting or fever. Past medical history is complicated including hepatitis C, liver cancer, scleroderma, and she is on the liver transplant list reportedly. TRAVEL OUTSIDE OF THE [place] IN LAST 30 DAYS: No - Related Data Allergies/Adverse Reactions: barium iodide Allergy (Verified 10/29/18 00:05) barium sulfate Allergy (Verified 10/29/18 00:05) cyclobenzaprine [From Flexeril] Adverse Reaction (Verified 10/29/18 00:05) Past Medical History Neurological Medical History: Denies: Hx Seizures Renal/ Medical History: Denies: Hx Peritoneal Dialysis Past Surgical History: Reports: Hx Appendectomy, Hx Hysterectomy Physical Exam - Abdominal Tenderness: Tender - Tender but without guarding in the general right upper quadrant area. No evidence of external wound infection. Exam limited by sitting position. Course - Re-evaluation Re-evalutation: I have greeted and performed a rapid initial assessment of this patient. A comprehensive ED assessment and evaluation of the patient, analysis of test results and completion of the medical decision making process will be conducted by additional ED providers. Doctor's Discharge - Discharge Referrals: LIZZIE JARAMILLO MD [Primary Care Provider] - Follow up as needed
[2018-11-17 00:17] LABS: ABSOLUTE EOSINOPHILS # (AUTO) 0.1 10^3/uL (0.0-0.6); ABSOLUTE LYMPHOCYTES (AUTO) 0.8 10^3/uL (0.5-4.7); ABSOLUTE MONOCYTES (AUTO) 0.4 10^3/uL (0.1-1.4); ABSOLUTE NEUT (AUTO) 1.6 10^3/uL (1.7-8.2); BASOPHILS % (AUTO) 0.9 % (0-2); EOSINOPHILS % (AUTO) 2.8 % (0-6); HEMATOCRIT 28.5 % (36.0-47.0); HEMOGLOBIN 9.7 g/dL (12.0-15.5); LYMPHOCYTES % (AUTO) 27.6 % (13-45); MEAN CORPUSCULAR HEMOGLOBIN 32.3 pg (27.0-33.4); MEAN CORPUSCULAR HGB CONC 33.9 g/dL (32.0-36.0); MONOCYTES % (AUTO) 13.8 % (3-13); RED CELL DISTRIBUTION WIDTH 13.9 % (11.5-14.0); SEGMENTED NEUTROPHILS % (AUTO) 54.9 % (42-78); TOTAL CELLS COUNTED % (AUTO) 100 %
[2018-11-17 00:21] LABS: ALANINE AMINOTRANSFERASE 52 U/L (9-52); ALBUMIN 3.5 g/dL (3.5-5.0); ALKALINE PHOSPHATASE 138 U/L (38-126); ANION GAP 7 (5-19); ASPARTATE AMINO TRANSFERASE 83 U/L (14-36); BILIRUBIN,DIRECT 0.4 mg/dL (0.0-0.4); BILIRUBIN,TOTAL 0.6 mg/dL (0.2-1.3); BLOOD UREA NITROGEN 9 mg/dL (7-20); CALCIUM 8.6 mg/dL (8.4-10.2); CARBON DIOXIDE 29 mmol/L (22-30); CHLORIDE 103 mmol/L (98-107); GLUCOSE 79 mg/dL (75-110); POTASSIUM 4.8 mmol/L (3.6-5.0); SODIUM 138.6 mmol/L (137-145); TOTAL PROTEIN 7.2 g/dL (6.3-8.2)
[2018-11-17 00:49] LABS: PLATELET COUNT 81 10^3/uL (150-450)
--- NOTE | 2018-11-17 01:36 | RADIOLOGY REPORT (SQ) ---
EXAM DESCRIPTION: CT ABDOMEN PELVIS WITH IV CONTRAST COMPLETED DATE/TME: 11/16/2018 22:44 CLINICAL HISTORY: 63 years, Female, post op pain in RUQ COMPARISON: None. TECHNIQUE: 634 Images stored on PACS. All CT scanners at this facility use dose modulation, iterative reconstruction, and/or weight based dosing when appropriate to reduce radiation dose to as low as reasonably achievable (ALARA). [facility]: Dose Right [facility]: CareDose [facility]: Dose Right [facility]: Teradose 4D [facility]: [employer] LIMITATIONS: None. FINDINGS: Limited evaluation of the lung bases shows a moderate sized hiatal hernia. Osseous structures are grossly intact. Multiple embolization coils in the upper abdomen. Correlate with surgical history. Fatty infiltrative change to the liver with a nodular contour, worrisome for cirrhotic change. The spleen is enlarged, measuring 16 cm in craniocaudal diameter. The adrenal glands, pancreas, kidneys are unremarkable. Multiple varices of the upper abdomen. Cholelithiasis. No gross evidence for bowel obstruction. Abundant stool in the colon. No free air. Small amount of ascites. The appendix is not well seen. No pericecal inflammation. IMPRESSION: Multiple embolization coils of the upper abdomen, correlate with surgical history. Nodular change to the liver consistent with cirrhosis. The spleen is enlarged at 16 cm. Small volume of ascites. Multiple varices of the upper abdomen. TECHNICAL DOCUMENTATION: Quality ID # [id number]: Final reports with documentation of one or more dose reduction techniques (e.g., Automated exposure control, adjustment of the mA and/or kV according to patient size, use of iterative reconstruction technique) copyright 2010 [employer]- All Rights Reserved
[2018-11-17 01:43] LABS: MEAN CORPUSCULAR VOLUME 95 fl (80-97)
--- NOTE | 2018-11-17 02:18 | ER Document Report ---
ED General - General Chief Complaint: Post Surgical Bleeding Stated Complaint: POST SURGICAL PAIN Time Seen by Provider: 11/16/18 22:38 Primary Care Provider: LIZZIE JARAMILLO MD [Primary Care Provider] - Follow up as needed Notes: Patient is a 63-year-old female with past medical history including hepatitis C, liver cancer, scleroderma, and she is on the liver transplant list reportedly presenting with chief complaint of postoperative pain. On 11/06/2018 she had a obliteration and embolization at the portal vein area at [facility] with a coil placed. This was performed by Dr. Agosto. Patient states pain has developed over the past few days and is worsened today. Pain is been ongoing for at least 5 to 6 days. Described as a throbbing, aching, constant pain to her right upper abdomen over the site of the surgery. Denies vomiting or fever. Has not contacted her surgeon regarding today's concerns. Nothing seems to improve or worsen her pain. TRAVEL OUTSIDE OF THE [place] IN LAST 30 DAYS: No - Related Data Allergies/Adverse Reactions: barium iodide Allergy (Verified 10/29/18 00:05) barium sulfate Allergy (Verified 10/29/18 00:05) cyclobenzaprine [From Flexeril] Adverse Reaction (Verified 10/29/18 00:05) Past Medical History - General Information source: Patient - Social History Smoking Status: Never Smoker Chew tobacco use (# tins/day): No Frequency of alcohol use: None Drug Abuse: None Lives with: Family Family History: Reviewed & Not Pertinent Patient has suicidal ideation: No Patient has homicidal ideation: No Neurological Medical History: Denies: Hx Seizures Renal/ Medical History: Denies: Hx Peritoneal Dialysis Past Surgical History: Reports: Hx Appendectomy, Hx Hysterectomy Review of Systems - Review of Systems Notes: Constitutional: Negative for fever. HENT: Negative for sore throat. Eyes: Negative for visual changes. Cardiovascular: Negative for chest pain. Respiratory: Negative for shortness of breath. Gastrointestinal: Positive for abdominal pain and nausea Genitourinary: Negative for dysuria. Musculoskeletal: Negative for back pain. Skin: Negative for rash. Neurological: Negative for headaches, weakness or numbness. 10 point ROS negative except as marked above and in HPI. Physical Exam - Vital signs Vitals: Temp Pulse Resp BP Pulse Ox 98.1 F 88 16 114/56 L 97 11/16/18:31 11/16/18 19:31 11/16/18 19:31 11/16/18 19:31 11/16/18 19:31 Interpretation: Normal Notes: PHYSICAL EXAMINATION: GENERAL: Appears somewhat older than stated age, chronically ill in appearance but in no acute distress HEAD: Atraumatic, normocephalic. EYES: Pupils equal round and reactive to light, extraocular movements intact, sclera anicteric, conjunctiva are normal. ENT: nares patent, oropharynx clear without exudates. Moderately dry mucous membranes. NECK: Normal range of motion, supple without lymphadenopathy LUNGS: Breath sounds clear to auscultation bilaterally and equal. No wheezes rales or rhonchi. HEART: Regular rate and rhythm without murmurs ABDOMEN: Soft, mild focal tenderness to the right upper quadrant, abdomen otherwise benign, normoactive bowel sounds. No guarding, no rebound. No masses appreciated. EXTREMITIES: Normal range of motion, no pitting or edema. No cyanosis. NEUROLOGICAL: No focal neurological deficits. Moves all extremities spontaneously and on command. PSYCH: Normal mood, normal affect. SKIN: Warm, Dry, normal turgor, no rashes or lesions noted. Course - Re-evaluation Re-evalutation: 11/17/18 02:15 Patient presents with at least 6 to 7 days of ongoing right upper quadrant abdominal pain after having coiling and embolization done of varices in her portal system. The patient appears chronically ill but is in no acute distress. On abdominal exam she does have some mild focal tenderness to the right upper quadrant but the exam is otherwise quite benign. No rebound or guarding. Vitals are within acceptable limits at the time of my evaluation. The patient had a CT scan today which does not demonstrate any acute findings, labs improved from previous assessment at the end of October. At this point this appears to l ikely be postoperative pain particular given that the pain is most focal at the procedure site. However I have advised the patient that I would encourage her to follow closely with her surgeon ideally tomorrow morning and ensure that there are no additional testing or diagnostic concerned that they would have at this time. However at this point I do not believe the patient warrants transfer to [facility] given benign work-up to this point, reassuring vitals and history. At this time will discharge with return precautions and follow-up recommendations. Verbal discharge instructions given a the bedside and opportunity for questions given. Medication warnings reviewed. Patient is in agreement with this plan and has verbalized understanding of return precautions and the need for follow-up with her surgeon tomorrow. - Vital Signs Vital signs: Temp Pulse Resp BP Pulse Ox 98.1 F 88 16 114/56 L 97 11/16/18 19:31 11/16/18 19:31 11/16/18 19:31 11/16/18 19:31 11/16/18 19:31 - Laboratory Result Diagrams: 11/16/18 23:45 11/16/18 23:45 Laboratory results interpreted by me: 11/16/18 11/16/18 23:45 23:45 WBC 3.0 L RBC 3.00 L Hgb 9.7 L Hct 28.5 L Plt Count 81 L Monocytes % 13.8 H Absolute Neutrophils 1.6 L AST 83 H Alkaline Phosphatase 138 H - Diagnostic Test Radiology reviewed: Reports reviewed Discharge - Discharge Clinical Impression: Postoperative abdominal pain, Right upper quadrant abdominal pain Condition: Good Disposition: HOME, SELF-CARE Additional Instructions: Please contact your surgeon in the morning regarding emergency department visit tonight. Your labs and CT imaging today are reassuring. It is very important that you return to the emergency department immediately if you have worsening of your pain, fever, began to vomit, pass out, or have any other symptoms that are worrisome to you. Referrals: LIZZIE JARAMILLO MD [Primary Care Provider] - Follow up as needed
[2018-11-17 02:36] VITALS: BP 132/71
== END 2018-11-17 02:36 | disposition home or self-care (01) ==
LOC: ER 19:21
DX: G89.18 Other acute postprocedural pain (principal); R10.11 Right upper quadrant pain; Z98.890 Other specified postprocedural states
CPT/HCPCS: 99284; 36415; 83690; 85025; 80053; 74022; 74177; A9270

== ENCOUNTER 2019-01-28 22:23 | Emergency (ER) | payer MEDICARE, OTHER ==
--- NOTE | 2019-01-28 23:11 | ER Document Report ---
ED Medical Screen (RME) - General Chief Complaint: Rectal Bleeding Stated Complaint: INTERNAL BLEEDING Time Seen by Provider: 01/28/19 23:06 Primary Care Provider: GIORGIO AYON MD [Primary Care Provider] - Follow up as needed Notes: Patient is a 64-year-old female currently awaiting liver transplant presents to the emergency department for rectal bleeding. States she has had multiple episodes of feces initially with bright red blood and now dark black stool. Patient states she has generalized abdominal pain as well as denying any fevers, denies any vomiting. GENERAL: Alert, interacts well. No acute distress. ABDOMEN: Soft, generalized tenderness noted periumbilical. . Non-distended. Bowel sounds present in all 4 quadrants. I have greeted and performed a rapid initial assessment of this patient. A comprehensive ED assessment and evaluation of the patient, analysis of test results and completion of the medical decision making process will be conducted by additional ED providers. I have specifically instructed the patient or family members with the patient to immediately return to any nursing staff should anything change in the patient's condition or with their chief complaint. This medical record was dictated with voice recognizing software. There may be grammatical, syntax errors that are unintended. TRAVEL OUTSIDE OF THE [place] IN LAST 30 DAYS: No - Related Data Allergies/Adverse Reactions: barium iodide Allergy (Verified 10/29/18 00:05) barium sulfate Allergy (Verified 10/29/18 00:05) cyclobenzaprine [From Flexeril] Adverse Reaction (Verified 10/29/18 00:05) zolpidem Adverse Reaction (Verified 01/28/19 22:49) Past Medical History Neurological Medical History: Denies: Hx Seizures Renal/ Medical History: Denies: Hx Peritoneal Dialysis Past Surgical History: Reports: Hx Appendectomy, Hx Hysterectomy Physical Exam - Vital signs Vitals: Temp Pulse Resp BP Pulse Ox 98.4 F 91 20 117/56 L 98 01/28/19 22:48 01/28/19 22:48 01/28/19 22:48 01/28/19 22:48 01/28/19 22:48 Course - Vital Signs Vital signs: Temp Pulse Resp BP Pulse Ox 98.4 F 91 20 117/56 L 98 01/28/19 22:48 01/28/19 22:48 01/28/19 22:48 01/28/19 22:48 01/28/19 22:48 Doctor's Discharge - Discharge Referrals: GIORGIO AYON MD [Primary Care Provider] - Follow up as needed
[2019-01-28] MEDS ORDERED: PANTOPRAZOLE SODIUM 40 MG VIAL IV ONE (23:55)
[2019-01-28] MEDS ORDERED: PANTOPRAZOLE SODIUM 40 MG VIAL IV PRN (23:56)
--- NOTE | 2019-01-28 23:58 | ER Document Report ---
ED GI Bleed / Rectal Pain - General Chief Complaint: Rectal Bleeding Stated Complaint: INTERNAL BLEEDING Time Seen by Provider: 01/28/19 23:06 Primary Care Provider: GIORGIO AYON MD [Primary Care Provider] - Follow up as needed Notes: Patient is a 64-year-old female that comes to the emergency department for chief complaint of bloody stools. She states she started noticing it last night, called her pathologist, was told to take a dose of MiraLAX and observe her stools, states that she has had 8-10 black tarry stools this afternoon and evening. She states she started getting lightheaded as well, she has not passed out. She has had some upper abdominal cramping but denies severe pain, denies vomiting, denies fever. Past medical history of liver cancer, hepatitis C, cirrhosis of the liver, and she is on the [facility] transplant list. She is not on a blood thinner. Past medical history also includes appendectomy, hysterectomy, seizure disorder. She has had a GI bleed in the past including esophageal v arices. TRAVEL OUTSIDE OF THE [place] IN LAST 30 DAYS: No - Related Data Allergies/Adverse Reactions: barium iodide Allergy (Verified 10/29/18 00:05) barium sulfate Allergy (Verified 10/29/18 00:05) cyclobenzaprine [From Flexeril] Adverse Reaction (Verified 10/29/18 00:05) zolpidem Adverse Reaction (Verified 01/28/19 22:49) Past Medical History - General Information source: Patient - Social History Smoking Status: Never Smoker Frequency of alcohol use: None Drug Abuse: None Lives with: Family Family History: Reviewed & Not Pertinent Neurological Medical History: Denies: Hx Seizures Renal/ Medical History: Denies: Hx Peritoneal Dialysis GI Medical History: Reports: Hx Cirrhosis, Hx Hepatitis, Hx Liver Failure Infectious Medical History: Reports: Hx Hepatitis Past Surgical History: Reports: Hx Appendectomy, Hx Hysterectomy Review of Systems - Review of Systems Constitutional: No symptoms reported EENT: No symptoms reported Cardiovascular: See HPI Respiratory: No symptoms reported Gastrointestinal: See HPI Genitourinary: No symptoms reported Female Genitourinary: No symptoms reported Musculoskeletal: No symptoms reported Skin: No symptoms reported Hematologic/Lymphatic: No symptoms reported Neurological/Psychological: No symptoms reported Physical Exam - Vital signs Vitals: Temp Pulse Resp BP Pulse Ox 98.4 F 91 20 117/56 L 98 01/28/19 22:48 01/28/19 22:48 01/28/19 22:48 01/28/19 22:48 01/28/19 22:48 - Notes Notes: GENERAL: Alert, interacts well. HEAD: Normocephalic, atraumatic. EYES: Pupils equal, round, and reactive to light. Extraocular movements intact. ENT: Oral mucosa moist, tongue midline. Oropharynx unremarkable. Airway patent. LUNGS: Clear to auscultation bilaterally, no wheezes, rales, or rhonchi. No respiratory distress. HEART: Regular rate and rhythm. 1/6 murmur heard throughout. ABDOMEN: Soft, non-tender. Non-distended. Bowel sounds present in all 4 quadrants. EXTREMITIES: Moves all 4 extremities spontaneously. No edema, normal radial and dorsalis pedis pulses bilaterally. No cyanosis. BACK: no cervical, thoracic, lumbar midline tenderness. No saddle anesthesia, normal distal neurovascular exam. NEUROLOGICAL: Alert and oriented x3. Normal speech. Cranial nerves II through XII grossly intact. PSYCH: Normal affect, normal mood. SKIN: Warm, dry, normal turgor. No rashes or lesions noted. Course - Re-evaluation Re-evalutation: Patient with hemoglobin of 8.8. Blood pressure is greater than 100 systolic, she is not pale, tachycardic, or ill-appearing. She did have a black/melanotic bowel movement in the emergency department and I did see the stool. Suspect she has an upper GI bleed similar to a few months ago. A few months ago patient was transferred to [facility] after initially being admitted here, she has a history of ga stric varices and esophageal varices reportedly. Patient has no vomiting or vomiting blood. I did discuss the patient with Dr. Kuhn. Patient has been on Protonix bolus and infusion. Given Rocephin, octreotide, ordering blood. Remaining laboratory work-up nonspecific. 01/29/19 02:[address] Little, Emergency physician at [facility], patient accepted for transfer. Discussed again with patient and daughter at bedside, they state gratefulness and agreement. 01/29/19 05:13 Patient has actually not had any additional bloody bowel movements since the first when she had after she arrived. She remains well-appearing at this time on reevaluation at bedside. No significant change in vital signs her blood pressure. No current complaints. Transport is here, patient is stable for transport. - Vital Signs Vital signs: Temp Pulse Resp BP Pulse Ox 98.4 F 91 19 127/52 H 100 01/28/19 22:48 01/28/19 22:48 01/29/19 04:01 01/29/19 04:00 01/29/19 04:01 - Laboratory Result Diagrams: 01/29/19 01:19 01/29/19 01:19 Laboratory results interpreted by me: 01/29/19 01/29/19 01/29/19 01:19 01:19 01:19 WBC 2.5 L RBC 2.86 L Hgb 8.8 L Hct 26.0 L RDW 19.3 H Plt Count 44 L Absolute Neuts (auto) 1.1 L PT 16.2 H Chloride 108 H AST 101 H Crossmatch 01/29/19 01:19 WBC RBC Hgb Hct RDW Plt Count Absolute Neuts (auto) PT Chloride AST Crossmatch See Detail Discharge - Discharge Clinical Impression: GI hemorrhage Qualifiers: GI bleed type/associated pathology: melena Qualified Code(s): K92.1 - Melena Cirrhosis of liver Qualifiers: Hepatic cirrhosis type: unspecified hepatic cirrhosis Ascites presence: without ascites Qualified Code(s): K74.60 - Unspecified cirrhosis of liver Condition: Stable Disposition: [place] Referrals: GIORGIO AYON MD [Primary Care Provider] - Follow up as needed
[2019-01-29 01:38] LABS: ABSOLUTE EOSINOPHILS # (AUTO) 0.1 10^3/uL (0.0-0.6); ABSOLUTE MONOCYTES (AUTO) 0.3 10^3/uL (0.1-1.4); ABSOLUTE NEUT (AUTO) 1.1 10^3/uL (1.7-8.2); BASOPHILS % (AUTO) 0.9 % (0-2); EOSINOPHILS % (AUTO) 2.8 % (0-6); HEMOGLOBIN 8.8 g/dL (12.0-15.5); LYMPHOCYTES % (AUTO) 38.2 % (13-45); MEAN CORPUSCULAR HEMOGLOBIN 30.6 pg (27.0-33.4); MEAN CORPUSCULAR HGB CONC 33.7 g/dL (32.0-36.0); MEAN CORPUSCULAR VOLUME 91 fl (80-97); MONOCYTES % (AUTO) 12.8 % (3-13); RED BLOOD COUNT 2.86 10^6/uL (3.72-5.28); RED CELL DISTRIBUTION WIDTH 19.3 % (11.5-14.0); SEGMENTED NEUTROPHILS % (AUTO) 45.3 % (42-78); TOTAL CELLS COUNTED % (AUTO) 100 %; WHITE BLOOD COUNT 2.5 10^3/uL (4.0-10.5)
[2019-01-29 01:41] LABS: INTERNATIONAL RATION (INR) 1.29; PROTHROMBIN TIME 16.2 SEC (11.4-15.4)
[2019-01-29 01:51] LABS: ALBUMIN 3.5 g/dL (3.5-5.0); ALKALINE PHOSPHATASE 109 U/L (38-126); ANION GAP 6 (5-19); ASPARTATE AMINO TRANSFERASE 101 U/L (14-36); BILIRUBIN,DIRECT 0.3 mg/dL (0.0-0.4); BILIRUBIN,TOTAL 0.5 mg/dL (0.2-1.3); BLOOD UREA NITROGEN 19 mg/dL (7-20); CALCIUM 8.9 mg/dL (8.4-10.2); CARBON DIOXIDE 26 mmol/L (22-30); CHLORIDE 108 mmol/L (98-107); GLUCOSE 83 mg/dL (75-110); POTASSIUM 4.3 mmol/L (3.6-5.0); TOTAL PROTEIN 6.8 g/dL (6.3-8.2)
[2019-01-29 01:57] LABS: PLATELET COUNT 44 10^3/uL (150-450)
[2019-01-29] MEDS ORDERED: ONDANSETRON HCL INJ/PF 4 MG/2 ML SDV IV ONE (02:20)
[2019-01-29] MEDS ORDERED: HYDROMORPHONE HCL INJ/PF 2 MG/ML AMPULE IV ONE (02:20)
[2019-01-29] MEDS ORDERED: CEFTRIAXONE 1 GM/D5W RTU 1 GM/50 ML RTUPB IV ONE (02:40)
[2019-01-29] MEDS ORDERED: OCTREOTIDE ACETATE INJ/PF 100 MCG/1 ML SDV IV ONE (02:40)
[2019-01-29] MEDS ORDERED: NORMAL SALINE 500 ML with OCTREOTIDE ACETATE 500 MCG IV PRN ×2 (02:42)
[2019-01-29] MEDS ORDERED: NORMAL SALINE 250 ML IV PRN ×2 (02:44)
[2019-01-29 04:42] VITALS: BP 127/52
== END 2019-01-29 05:29 | disposition short-term general hospital (02) ==
LOC: ER 22:23
DX: K92.1 Melena (principal); K74.60 Unspecified cirrhosis of liver; R10.10 Upper abdominal pain, unspecified; Z90.710 Acquired absence of both cervix and uterus; Z85.05 Personal history of malignant neoplasm of liver; Z86.19 Personal history of other infectious and parasitic diseases
CPT/HCPCS: 36415; 80053; 83690; 85025; 85610; 85730; 86850; 86900; 86901; 86920; J0696; J1170; J2354; J2405; S0164

== ENCOUNTER → 2019-02-25 | Outpatient (CLI) | payer MEDICARE, OTHER ==
--- NOTE | 2019-02-25 14:12 | WOMENS IMAGING REPORT ---
EXAM DESCRIPTION: 3D SCREENING MAMMO BILAT COMPLETED DATE/TIME: 02/25/2019 12:10 pm REASON FOR STUDY: Z12.31 SCREENING MAMMO Z12.31 ENCNTR SCREEN MAMMOGRAM FOR MALIGNANT NEOPLASM OF B RE COMPARISON: No previous, prior mammograms are greater than 20 years old EXAM PARAMETERS: Views: Standard craniocaudal and mediolateral oblique views of each breast recorded using digital acquisition and breast tomosynthesis. Read with the assistance of CAD. .COUNT INCLUDES THE [facility] - R2 Sociology Adjunct Instructor Version 9.2 LIMITATIONS: None. FINDINGS: No suspicious masses, suspicious calcifications or architectural distortion. No areas of c oncern. IMPRESSION: NEGATIVE MAMMOGRAM. BIRADS 1. BREAST DENSITY: c. The breasts are heterogeneously dense, which may obscure small masses. BIRAD: ASSESSMENT: 1 NEGATIVE RECOMMENDATION: ROUTINE SCREENING COMMENT: The patient has been notified of the results by letter per MQSA requirements. Additional no tification policies are in place for contacting patient with suspicious or incomplete findings. Quality ID #[id number]: The [employer] recommends an annual screening mammogram for women aged 40 years or over. This facility utilizes a reminder system to ensure that all patients receive reminder letters, and/or direct phone calls for appointments. This includes reminders for routine scr eening mammograms, diagnostic mammograms, or other Breast Imaging Interventions when appropriate. Th is patient will be placed in the appropriate reminder system. TECHNICAL DOCUMENTATION: FINDING NUMBER: (1) ASSESSMENT: (1) JOB ID: [id number] [employer]- All Rights Reserved Reading location - IP/workstation name: [facility]
== END ==
LOC: WI 11:35
PROVIDERS: ATTEND Family Medicine
DX: Z12.31 Encounter for screening mammogram for malignant neoplasm of breast (principal)
CPT/HCPCS: 77063; 77067